=== PATIENT | male | born 1980 | race Caucasian/White ===

== ENCOUNTER 2025-09-13 06:59 | Emergency (ER) | payer MEDICAID ==
[~2025-09-13] VITALS: Ht 177.8 cm; Wt 104.2 kg
[2025-09-13 07:03] VITALS: BP 139/70; PULSE 87; TEMP 98.6; O2SAT 99
--- NOTE | 2025-09-13 07:14 | Physician Documentation ---
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 He was cutting a tree yesterday, it started raining, he removed his glasses because he was not able to see and got what he feels is piece of wood/foreign body into his right eye. He attempted to flush it out without success. He still feels that it is a foreign body moving around under his upper lid. Denies any other symptoms. No concern for tobacco, alcohol or illicit substances use Medication Reconciliation Allergies: Coded Allergies: No Known Allergies (Unverified , 09/13/25) Past Medical History Past Medical History: No Pertinent History Past Surgical History: no surgical history Drug Use: none Lives In: Home Review of Systems ROS 10 point review of systems was performed and unless noted above in HPI is negative for acute process/complaint. Physical Exam Physical Exam Vital Signs: Temperature: 98.6, Source: Oral, Heart Rate: 87, Respiratory Rate: 16, BP: 139/70, Pulse Oximetry: 99, Weight: 104.200 Oxygen Flow Rate: 0 Physical Exam Physical examination: GENERAL: Awake, alert, oriented, GCS 15, no apparent distress, non-toxic appearing, answers questions, follows commands appropriately. HEENT: Atraumatic, normocephalic, pupils equal, extraocular muscles intact Active gross movements, sclerae anicteric, mucus membranes moist, no stridor. NECK: Midline, no JVD CARDIOVASCULAR: Good skin perfusion without evidence of pallor, mottling. PULMONARY: Nonlabored, symmetric chest rise, no audible wheezing, no accessory muscle use, no respiratory distress, speaking in full sentences. GASTROINTESTINAL: Not distended. NEUROLOGIC: Lucid with normal mental status. Normal facial symmetry. Moves all extremities symmetrically and with purpose. No truncal ataxia. Speech is fluid without evidence of dysarthria or aphasia, no focal deficits appreciated. EXTREMITIES: Acute deformities Skin: warm, dry PSYCHIATRIC: Normal affect, normal insight, normal concentration. Focused exam: [Visual acuity is unaffected. Anterior chamber is not shallow, there is conjunctival injection, no purulent discharge. No evidence of hypopyon, hyphema, still storm in the anterior chamber. Eyelids were inverted and no foreign body detected. There is a very obvious corneal abrasion at six and 7:00 a.m. closer to the center of the cornea. Negative Jermaine sign.] Progress Results/Orders Results/Orders Completed Orders - VINNIE LUNA DO Fluorescein 1mg Ophthal Strip (Ful-Antonia O (09/13/25 07:10) Proparacaine Ophth Solution (Alcaine Oph (09/13/25 07:10) Vital Signs 09/13/25 07:03 Temp 98.6 Pulse 87 Resp 16 B/P (MAP) 139/70 Pulse Ox 99 O2 Flow Rate 0 Medical Decision Making Additional information obtaine: N/A Findings Facility Status: ED Holds, RME process The plan was discussed with the patient, who demonstrates clear understanding of the plan and is in agreement with the plan unless otherwise noted in the chart. All questions have been answered, all concerns were addressed unless otherwise documented. I was available throughout their ED stay for frequent reassessment and questions. Differential Diagnoses (considered and possible or likely): [Corneal abrasion, scleral abrasion, conjunctivitis, foreign body, unlikely to be hypopyon, hyphema, perforated globe, clinically not consistent with a periorbital cellulitis, orbital cellulitis.] ??Differential Diagnoses (considered and unlikely, not requiring evaluation currently): [See above] MDM Data Please see [facility] for the following: Independent Historians and external Records Review. Historian: [Patient] Independent Historians: ?[None] Medication Management: [Reviewed medication list] Social History and determinants: [Reviewed] Please see the body of the note for the following: Any independent interpretations of ECG, imaging studies. All vitals signs/haemodynamics, ordered tests were independently reviewed and interpreted by myself. Nursing triage complaint and vitals reviewed, additional nursing notes were reviewed as available and I agree unless otherwise noted or documented in contradiction in the chart Vital Signs: Independently reviewed Labs: Independently interpreted Imaging: Independently interpreted Old Medical Records: Independently reviewed, see [facility] for relevant summary and information Additionally notably showing: [Hemodynamically stable] Tests considered but not ordered include: [Hematologic workup and imaging has been considered but does not appear to be necessary given clinical nature of diagnosis] Social Determinants of Health Impact: Patient was evaluated in [facility] [place] to healthcare due to below par ratio of patient to medical providers. [] Comorbid Conditions Impacting Present Evaluation and Care/Treatment: [None] Management Discussions with other Healthcare Providers: [] Treatment and Disposition Medication Management (Given or considered): [Fluorescein strip, proparacaine]. See EMR for details Consideration for Hospitalization/Escalation/Deescalation of Care: Admission for observation has been considered, [however the patient is able to tolerate p.o., their symptoms are controlled, they are able to rely on oral medications, and their chief complaint/diagnosis can be managed on outpatient basis.] ?ED Course:?[] ?Shared decision making:?[] Code status:?FULL Please see the full Electronic Medical Record for full details of nursing documentation, medications list, other records of complete past medical history and conditions, vital signs, laboratory studies, and any radiologic study interpretations by radiologists. Portions of this note were completed using [employer] dictation software and as a result there may exist minor errors in spelling. I have reviewed elements of past family and social history and agree as included in note. Differential Diagnosis See body of the main note for differential diagnosis Departure Disposition: 01 HOME / SELF CARE / HOMELESS Impression: Primary Impression: Corneal abrasion Condition: Improved Discharge Instructions: Corneal Abrasion Referrals: NO PRIMARY CARE PROVIDER (PCP) Prescriptions Ofloxacin Opth.* (Ofloxacin Opth.*) 5 Ml Bottle 2 DRP EACHEYE Q4H for 7 Days, #10 ML EVERY 4 HOURS WHILE AWAKE. Prov: VINNIE LUNA DO 09/13/25 Education Educated: Patient Educated regarding: diagnosis, treatment, prognosis, need for follow up Signature Scribe Signature: No scribe Attestation: Date: Sep 13, 2025 Time: 07:14 This note accurately reflects clinical decisions, work performed by myself, Vinnie Luna, VINNIE FERRARI DO Sep 13, 2025 07:14
[2025-09-13] MEDS: proparacaine 0.5% ophthalmic drops 15ml EACHEYE ONE (07:28)
[2025-09-13] MEDS: fluorescein sod 1mg ophthalmic strip EACHEYE ONE (07:28)
[2025-09-13 07:31] VITALS: RESP 15
[2025-09-13] MEDS ORDERED: OFLO5DRO EACHEYE (07:31)
== END 2025-09-13 07:42 | disposition home or self-care (01) ==
LOC: ER 07:00
DX: S05.01XA Injury of conjunctiva and corneal abrasion without foreign body, right eye, initial encounter (principal); X58.XXXA Exposure to other specified factors, initial encounter; Y93.89 Activity, other specified; Y92.89 Other specified places as the place of occurrence of the external cause; Y99.8 Other external cause status
CPT/HCPCS: 99283